=== PATIENT | male | born 1955 | race Caucasian/White ===

== ENCOUNTER 2024-12-07 13:26 | Outpatient (CLI) | payer MEDICARE, MEDICAID ==
--- NOTE | 2024-12-07 16:15 | RADIOLOGY REPORT ---
Procedure: CT CT CHEST LOW DOSE Reason for study/Clinical History: NICOTINE DEPENDENCE COMPARISON: None TECHNIQUE: Multidetector CT of the chest was performed from the lung apices to the upper abdomen without the use of intravenous contract. Axial, coronal and sagittal multiplanar reformats were performed. Radiation Dose Information: CT Dose: CTDI volume is 3.7 mGy. Dose-length product is 143 mGy*cm The dose indicators for CT are the volume Computed Tomography (CT) Dose Index (CTDIvol) and the Dose Length Product (DLP), and are measured in units of mGy and mGy-cm, respectively. These indicators are not patient dose, but values generated from the CT scanner acquisition factors. The report includes radiation exposure data for exposures received during this examination. FINDINGS: Lower neck: Normal thyroid. Lungs: 0.5 cm nodule in the right upper lobe, image 107. 0.5 cm nodule in the right middle lobe, image 185. Bilateral benign calcified granulomas. No focal consolidation. No suspicious pulmonary nodules. Heart/Vascular Structures: Cardiomegaly. No pericardial effusion. Lymph Nodes: No adenopathy. Pleura: No pleural effusion or significant pneumothorax. Musculoskeletal: Multilevel degenerative changes of the spine. No acute osseous abnormality. Soft tissues: Normal. Upper abdomen: Limited portions of the upper abdomen are unremarkable. IMPRESSION: No acute intrathoracic abnormality. 0.5 cm nodule in the right upper lobe and 0.5 cm nodule in the right middle lobe. LUNG RADS Category 2: Continue annual screening with LDCT
== END 2024-12-07 23:59 | disposition home or self-care (01) ==
LOC: RAD 13:26
PROVIDERS: ATTEND Nurse Practitioner Family
DX: Z12.2 Encounter for screening for malignant neoplasm of respiratory organs (principal); R91.8 Other nonspecific abnormal finding of lung field; I51.7 Cardiomegaly; M47.814 Spondylosis without myelopathy or radiculopathy, thoracic region; F17.210 Nicotine dependence, cigarettes, uncomplicated
CPT/HCPCS: 71271